=== PATIENT | male | born 1970 | race Caucasian/White ===

== ENCOUNTER 2017-06-05 07:58 | Day surgery (SDC) | payer OTHER ==
[~2017-06-05 07:58] MED LIST: Lactated Ringers 1,000 ML IV SCH; Sodium Chloride 0.9% 10 ML Syringe FLUSH PRN
[2017-06-05] MEDS ORDERED: fentaNYL 100 MCG/2 ML SDV ONE ×2 (08:24→09:05)
[2017-06-05] MEDS ORDERED: Propofol 200 MG/20 ML SDV ONE ×2 (08:25→09:05)
[2017-06-05] MEDS ORDERED: Midazolam 1 MG/ML 2 ML SDV ONE ×2 (08:25→09:05)
[2017-06-05] MEDS ORDERED: ceFAZolin 1 GM Vial ONE (09:05)
[2017-06-05] MEDS ORDERED: Ondansetron 4 MG/2 ML SDV ONE (09:05)
--- NOTE | 2017-06-05 09:15 | PCM.PN ---
- General Info Date of Service: 06/05/17 - Review of Systems Systems Review Comment:: 46 y/o male here for repair of recently developed umbilical hernia. He is medically stable to proceed today. He has noticed a slight recent increase in the size of his hernia but has otherwise had no other significant recent changes to his medical status. I have confirmed the location of the hernia with the patient and marked it. I have again reviewed the proposed operative procedure with the patient. Expectations and restrictions reviewed. He appears to understand and agrees to proceed. - Patient Data Vitals - Most Recent: Last Vital Signs Temp 98.4 F 06/05/17 08:25 Pulse 72 06/05/17 08:25 Resp 20 06/05/17 08:25 BP 132/73 06/05/17 08:25 Pulse Ox 98 06/05/17 08:25 Weight - Most Recent: 108.862 kg Med Orders - Current: Current Medications Lactated Ringer's (Ringers, Lactated) 1,000 mls @ 125 mls/hr IV ASDIRECTED YOLANDA Last Admin: 06/05/17 08:40 Dose: 125 mls/hr Sodium Chloride (Saline Flush) 10 ml FLUSH ASDIRECTED PRN PRN Reason: Keep Vein Open Discontinued Medications Fentanyl (Sublimaze) Confirm Administered Dose 100 mcg .ROUTE .STK-MED ONE Stop: 06/05/17 08:25 Midazolam HCl (Versed 1 Mg/Ml) Confirm Administered Dose 4 mg .ROUTE .STK-MED ONE Stop: 06/05/17 08:26 Propofol (Diprivan 20 Ml) Confirm Administered Dose 600 mg .ROUTE .STK-MED ONE Stop: 06/05/17 08:26 - Problem List Review Problem List Initiated/Reviewed/Updated: Yes - Assessment Assessment:: Umbilical hernia - Plan Plan:: Umbilical hernia repair
[2017-06-05] MEDS ORDERED: Bupivacaine 0.25%/EPINEPHrine 1:200,000 30 ML SDV INFILT ONE (09:25)
--- NOTE | 2017-06-05 10:27 | PCM.OPNOTE ---
- General Post-Op/Procedure Note Date of Surgery/Procedure: 06/05/17 Operative Procedure(s): Repair of umbilical hernia Findings: Moderate-sized umbilical hernia containing preperitoneal fat Pre Op Diagnosis: Umbilical hernia Post-Op Diagnosis: Same Anesthesia Technique: Local, MAC Primary Surgeon: Jamaal Gutiérrez Pathology: Hernia sac and contents Output, Urine Amount: 0 EBL in mLs: 20 Complications: None Condition: Good Free Text/Narrative:: Intake & Output 06/04/17 06/05/17 06/05/17 22:59 06:59 14:59 Intake Total 1000 Balance 1000
--- NOTE | 2017-06-05 14:37 | OR ---
Date of Procedure: 06/05/2017 PREOPERATIVE DIAGNOSIS: Umbilical hernia. POSTOPERATIVE DIAGNOSIS: Umbilical hernia. OPERATION PERFORMED: Umbilical herniorrhaphy. INDICATIONS FOR SURGERY: This 46-year-old male has recently developed a bulge at the level of his umbilicus. This has been enlarging. Findings are consistent with an umbilical hernia and he comes for an elective repair. FINDINGS: The patient had a moderate-sized umbilical hernia. The hernia sac does contain some preperitoneal fat, but no bowel was involved in the hernia itself. The surrounding fascia appears of good quality. DESCRIPTION OF PROCEDURE: The patient was taken to the operating room. He was given intravenous sedation. The abdomen was sterilely prepped with Betadine and draped. The periumbilical region was infiltrated with Xylocaine and Marcaine mix. A curvilinear incision was made along the inferior aspect of the umbilicus. Dissection proceeded down into the subcutaneous space, where the umbilical hernia sac was identified. This hernia sac was from the surrounding subcutaneous tissue and also dissected off the overlying skin of the umbilicus, preserving the skin uninjured. Once the fascia had been exposed circumferentially around the margin of the hernia, the hernia sac was then divided circumferentially with cautery at its junction with the fascial edge. The hernia sac was then amputated above clamps with ties of 3-0 Vicryl used for hemostasis on the vascular pedicles. The fascial edges were trimmed to present a good surface for approximation. The hernia defect was then closed by approximating the fascial edges with interrupted #1 Prolene in a Smead-Arce suturing technique in a transverse orientation. This created secure and complete closure of the hernia defect. The wound was then irrigated. The skin of the umbilicus was reattached to the underlying fascia with interrupted 3-0 Vicryl. The subcutaneous tissue was re-approximated with interrupted 4-0 Vicryl and the skin was closed with a running 4-0 Vicryl subcuticular stitch. Steri-Strips and benzoin were applied. Antibiotic ointment and sterile dressing were placed. The patient was then taken from the operating room in satisfactory condition. ESTIMATED BLOOD LOSS: 20 mL. COMPLICATIONS: None. PROGNOSIS: Good. TJ Gutiérrez MD /[id number]
== END 2017-06-05 13:14 | disposition home or self-care (01) ==
LOC: LL.SDS 07:58
PROVIDERS: ATTEND Surgery
DX: K42.9 Umbilical hernia without obstruction or gangrene (principal); Z79.899 Other long term (current) drug therapy
CPT/HCPCS: 49585; J0690; J2250; J2405; J2704; J3010; J7120